=== PATIENT | male | born 1965 | race Caucasian/White ===

== ENCOUNTER 2017-07-15 05:52 | Day surgery (SDC) | payer MEDICARE ==
[~2017-07-15 05:52] MED LIST: Dextrose 5%-0.45% NaCl 1,000 ML IV SCH; Midazolam 1 MG/ML 2 ML SDV ONE; Sodium Chloride 0.9% 10 ML Syringe FLUSH PRN; fentaNYL 100 MCG/2 ML SDV ONE
[2017-07-15] MEDS ORDERED: Midazolam 1 MG/ML 2 ML SDV IV ONE ×7 (05:53→07:08)
[2017-07-15] MEDS ORDERED: fentaNYL 100 MCG/2 ML SDV IV ONE ×4 (05:53→07:09)
--- NOTE | 2017-07-15 08:06 | OR ---
DATE: 07/15/2017 PROCEDURE: Total colonoscopy. INSTRUMENT USED: CF-H180AL Olympus video colonoscope. Olympus disposable distal attachment. PREMEDICATIONS: Fentanyl 125 mcg intravenous, Versed 4 mg intravenous. Nasal 2 L O2 cannula. The procedure was done under pulse oximetry, BP recording, and desk monitor. INDICATION: Screening colonoscopic examination is done for detection of any polypoid lesions and removal, endoscopic hemostasis therapy if needed. DESCRIPTION OF PROCEDURE: Initial rectal exam was unremarkable. Rigid anoscopy was normal. The colonoscope was passed with ease up to the ileocecal area. Photographs were taken of the normal-appearing cecum. Identified by double- bulged ileocecal folds. No bleeding was noted from any of the visualized areas at the commencement of the examination. No stricture. No vascular ectasia. No large isolated ulcerations seen. No evidence of diffuse inflammatory bowel disease in the form of friability, contact bleeding, or ulcerations. No polyp or tumor mass identified. Probing the proximal sides of folds and flexures, using adequate distention and clearing of the stool material, withdrawal of scope was made, cecum to rectum time over 6 minutes. No bleeding was noted from any of the visualized areas at the completion of the examination. IMPRESSION: Normal study. The patient tolerated the procedure well. [facility] /[id number]
== END 2017-07-15 10:20 | disposition home or self-care (01) ==
LOC: DL.ENDO 05:52
PROVIDERS: ATTEND Internal Medicine Gastroenterology
DX: Z12.11 Encounter for screening for malignant neoplasm of colon (principal); Z86.718 Personal history of other venous thrombosis and embolism
CPT/HCPCS: G0121; J2250; J3010; J7042

== ENCOUNTER 2019-10-13 06:52 | Day surgery (SDC) | payer MEDICARE, OTHER ==
[~2019-10-13 06:52] MED LIST changes: -Dextrose 5%-0.45% NaCl 1,000 ML IV SCH; +Lactated Ringers 1,000 ML IV SCH; -Midazolam 1 MG/ML 2 ML SDV ONE; -fentaNYL 100 MCG/2 ML SDV ONE
[2019-10-13] MEDS ORDERED: fentaNYL 100 MCG/2 ML SDV IV ONE (06:53)
[2019-10-13] MEDS ORDERED: Ketorolac 30 MG/ML SDV IVPUSH ONE (06:53)
[2019-10-13] MEDS ORDERED: Propofol 200 MG/20 ML SDV IV ONE (06:53)
[2019-10-13] MEDS ORDERED: Lidocaine 1% 30 ML SDV ONE ×2 (06:53→09:16)
[2019-10-13] MEDS ORDERED: Bupivacaine 0.5% 30 ML SDV ONE ×2 (06:53→09:16)
[2019-10-13] MEDS ORDERED: Midazolam 1 MG/ML 2 ML SDV IV ONE (06:53)
[2019-10-13] MEDS ORDERED: Dexamethasone 4 MG/ML SDV IV ONE (06:53)
[2019-10-13] MEDS: Clindamycin Phosphate 600 MG in Sodium Chloride 0.9% 100 ML IV ONE ×2 (09:06→13:45)
[2019-10-13] MEDS ORDERED: Bupivacaine 0.5% 30 ML SDV INJECT ONE ×3 (09:28→10:02)
[2019-10-13] MEDS ORDERED: Lidocaine 1% 30 ML SDV INJECT ONE ×3 (09:28→10:02)
[2019-10-13] MEDS ORDERED: Acetaminophen/oxyCODONE 325-5 MG Tab PO PRN (10:13)
--- NOTE | 2019-10-13 10:17 | PCM.OPNOTE ---
- General Post-Op/Procedure Note Date of Surgery/Procedure: 10/13/19 Operative Procedure(s): right foot talar exostectomy Pre Op Diagnosis: right foot painful bone spur dorsal talus Post-Op Diagnosis: tram Anesthesia Technique: Local, MAC Primary Surgeon: Felecia Prescott Anesthesia Provider: Julio Ríos EBL in mLs: 5 Complications: none Condition: Good Free Text/Narrative:: Pt tolerated procedure well and was transported to recovery with vascular status intact to right foot. Well padded compression dressing applied.
--- NOTE | 2019-10-14 02:28 | OR ---
DATE: 10/13/2019 PREOPERATIVE DIAGNOSIS: Right foot talonavicular joint exostosis. POSTOPERATIVE DIAGNOSIS: Right foot talonavicular joint exostosis. PROCEDURE PERFORMED: Right foot talonavicular joint exostectomy. ANESTHESIA: Local MAC with preoperative local block of 10 mL 1:1 mixture of 1% lidocaine plain and 0.5% Marcaine plain. TOURNIQUET TIME: 26 minutes, pneumatic ankle tourniquet. ESTIMATED BLOOD LOSS: Minimal. SPECIMEN: None. COMPLICATIONS: None. INDICATIONS: Dimitrios is a 54-year-old male who presents for right foot pain. This has been bothering him for a few years now and gradually worsening. He states that several years ago, he injured that foot and feels like it has been twisted ever since then. Most of his pain is now localized to the top of the foot near the ankle where he does have pain when he is walking or standing, also now it is starting to bother him at night and feels like there are needles and shooting pain coming from that area. We have tried wider shoes and inserts with no relief. X-rays of the right foot reveal large dorsal spurring at the talonavicular joint area. No signs of fracture. The patient voiced good understanding of proposed procedure and possible complications, elects to have surgery at this time. DESCRIPTION OF THE PROCEDURE: The patient was taken to the operating room lying in the supine position. After adequate anesthesia induction as described above, the right foot was prepped and draped in the usual sterile fashion. A pneumatic ankle tourniquet was inflated to 225 mmHg. Attention was directed to the right dorsal medial foot just medial to the anterior tibial tendon course, being careful to avoid the saphenous neurovascular bundle. A 4-cm linear incision was made at this area. Sharp and blunt dissections were performed down to the level of the dorsal talus navicular joint, being careful to avoid all neurovascular structures. A capsulotomy was made and the large spur was identified. A rongeur was used to remove the spur and a bone rasp was used to smooth all edges. Fluoroscopy was used to verify adequate resection of the bone spur and I was also able to visually and palpate the area to ensure all spur was removed. Bone wax was placed at the area of the spur removal. The area was first irrigated with copious amounts of sterile saline and then the bone wax was applied. The deep closure was completed with 3-0 Vicryl and skin closure was completed with 4-0 nylon. The area was then dressed with Xeroform to the incision site, fluffs, Webril, and an Jeronimo wrap. The patient tolerated anesthesia and the procedure well and was transferred to the recovery room with vital signs stable, vascular status intact as noted by immediate hyperemia to all digits upon deflation of the ankle tourniquet. The patient was then discharged home when he met hospital discharge requirements. [facility] /[id number]
== END 2019-10-13 12:09 | disposition home or self-care (01) ==
LOC: DL.SDS 06:52
PROVIDERS: ATTEND Podiatrist
DX: M77.51 Other enthesopathy of right foot and ankle (principal); D45 Polycythemia vera; I82.501 Chronic embolism and thrombosis of unspecified deep veins of right lower extremity; Z79.01 Long term (current) use of anticoagulants
CPT/HCPCS: 01480; 27635; J1100; J1885; J2001; J2250; J2704; J3010; J3490; J7050; J7120

== ENCOUNTER 2019-11-02 10:00 | Emergency (ER) | payer MEDICARE, OTHER ==
--- NOTE | 2019-11-02 10:33 | EDM.PDOC ---
<Chicho Dial - Last Filed: 11/02/19 10:28> ED HPI GENERAL MEDICAL PROBLEM - General Chief Complaint: Lower Extremity Injury/Pain Stated Complaint: SENT BY DR LEGGETT, SWOLLEN FOOT Time Seen by Provider: 11/02/19 10:28 Source of Information: Reports: Patient, RN, RN Notes Reviewed History Limitations: Reports: No Limitations - History of Present Illness INITIAL COMMENTS - FREE TEXT/NARRATIVE: had foot surgury on October 13 (bone spur), foot is still swollen and hurting , rates the pain 06/23, took 200 mg Ibuprofen at 0200, called Dr Leggett, and sent to the ER, foot is swollen and red, has dry flakey skin, incision is healed and has no drainage. Patient noticed redness slowly progressing up his leg from his foot in the last few days and the pain has gotten worse. Denies fever/chills or any other symptoms at this time. Onset: Gradual (swelling, pain and erythema has slowly progressed since surgery on Oct 14.) Duration: Constant Location: Reports: Lower Extremity, Right Quality: Reports: Ache Severity: Moderate Improves with: Reports: None Worsens with: Reports: None Associated Symptoms: Reports: No Other Symptoms Right Foot Pain Score (Numeric/FACES): 10 - Related Data Allergies Allergy/AdvReac Type Severity Reaction Status Date / Time No Known Allergies Allergy Verified 11/02/19 10:12 Home Meds: Home Meds Warfarin [Coumadin] 1 mg PO ASDIRECTED 07/14/17 [History] Past Medical History HEENT History: Reports: Other (See Below) Other HEENT History: LEGALLY BLIND (RETINITIS PIGMENTOSA) Cardiovascular History: Reports: Blood Clots/VTE/DVT Other Cardiovascular History: RIGHT LEG DVT Respiratory History: Reports: None Gastrointestinal History: Reports: None Genitourinary History: Reports: None Musculoskeletal History: Reports: Other (See Below) Other Musculoskeletal History: RIGHT FOOT BONE SPUR Neurological History: Reports: None Psychiatric History: Reports: None Endocrine/Metabolic History: Reports: None Hematologic History: Reports: Polycythemia, Other (See Below) Other Hematologic History: LONGTERM CURRENT USE OF ANTICOAGULANTS Immunologic History: Reports: None Oncologic (Cancer) History: Reports: None Dermatologic History: Reports: Psoriasis - Infectious Disease History Infectious Disease History: Reports: Chicken Pox - Past Surgical History Head Surgeries/Procedures: Reports: None HEENT Surgical History: Reports: Cataract Surgery Cardiovascular Surgical History: Reports: None Respiratory Surgical History: Reports: None GI Surgical History: Reports: Colonoscopy Male Surgical History: Reports: None Endocrine Surgical History: Reports: None Neurological Surgical History: Reports: None Musculoskeletal Surgical History: Reports: None Oncologic Surgical History: Reports: None Social & Family History - Family History Family Medical History: Noncontributory - Tobacco Use Smoking Status *Q: Never Smoker Second Hand Smoke Exposure: No - Caffeine Use Caffeine Use: Reports: Coffee, Soda - Recreational Drug Use Recreational Drug Use: No Review of Systems - Review of Systems Review Of Systems: Comprehensive ROS is negative, except as noted in HPI. ED EXAM, GENERAL - Physical Exam Exam: See Below Exam Limited By: No Limitations General Appearance: Alert, WD/WN, No Apparent Distress Respiratory/Chest: No Respiratory Distress, Lungs Clear, Normal Breath Sounds, No Accessory Muscle Use, Chest Non-Tender Cardiovascular: Normal Peripheral Pulses, Regular Rate, Rhythm, No Edema, No Gallop, No JVD, No Murmur, No Rub Extremities: Leg Pain, Increased Warmth, Redness (right foot, ankle, lower leg) Skin Exam: Warm, Dry, Intact, Erythema, Increased Warmth (right lower leg, ankle , foot) Course - Vital Signs Last Recorded V/S: Last Vital Signs Temp 36.3 C 11/02/19 10:07 Pulse 73 11/02/19 10:07 Resp 16 11/02/19 10:07 BP 112/83 11/02/19 10:07 Pulse Ox 99 11/02/19 10:07 - Orders/Labs/Meds Orders: Active Orders 24 hr Category Date Time Status Foot Comp Min 3V Rt [CR] Urgent Exams 11/02/19 10:26 Taken CULTURE BLOOD [BC] Stat Lab 11/02/19 10:35 Received Labs: Laboratory Tests 11/02/19 11/02/19 11/02/19 Range/Units 10:35 10:35 10:35 WBC 6.8 (5.0-10.0) 10^3/uL RBC 4.48 L (4.6-6.2) 10^6/uL Hgb 15.1 (14.0-18.0) g/dL Hct 44.2 (40.0-54.0) % MCV 98.7 (80-100) fL MCH 33.7 (27.0-34.0) pg MCHC 34.2 (33.0-35.0) g/dL Plt Count 165 (150-450) 10^3/uL Neut % (Auto) 62.2 (42.2-75.2) % Lymph % (Auto) 17.7 L (20.5-50.1) % [place] % (Auto) 10.8 H (2-8) % Eos % (Auto) 8.3 H (1.0-3.0) % Baso % (Auto) 1.0 (0.0-1.0) % PT (9.0-12.0) SEC INR (0.9-1.2) Sodium 137 (135-145) mmol/L Potassium 3.7 (3.6-5.0) mmol/L Chloride 103 (101-111) mmol/L Carbon Dioxide 26.0 (21.0-31.0) mmol/L Anion Gap 11.7 BUN 10 (7-18) mg/dL Creatinine 0.8 (0.6-1.3) mg/dL Est Cr Clr Drug Dosing 106.79 mL/min Estimated GFR (MDRD) > 60 BUN/Creatinine Ratio 12.50 Glucose 59 L (74-105) mg/dL Lactic Acid 1.5 (0.5-2.0) mmol/L Calcium 8.8 (8.4-10.2) mg/dl Total Bilirubin 1.2 H (0.2-1.0) mg/dL AST 26 (10-42) IU/L ALT 18 (10-60) IU/L Alkaline Phosphatase 44 (42-121) IU/L Total Protein 7.2 (6.7-8.2) g/dl Albumin 4.0 (3.2-5.5) g/dl Globulin 3.2 Albumin/Globulin Ratio 1.25 02/19/20 Range/Units 10:35 WBC (5.0-10.0) 10^3/uL RBC (4.6-6.2) 10^6/uL Hgb (14.0-18.0) g/dL Hct (40.0-54.0) % MCV (80-100) fL MCH (27.0-34.0) pg MCHC (33.0-35.0) g/dL Plt Count (150-450) 10^3/uL Neut % (Auto) (42.2-75.2) % Lymph % (Auto) (20.5-50.1) % [place] % (Auto) (2-8) % Eos % (Auto) (1.0-3.0) % Baso % (Auto) (0.0-1.0) % PT 46.5 H (9.0-12.0) SEC INR 4.9 H (0.9-1.2) Sodium (135-145) mmol/L Potassium (3.6-5.0) mmol/L Chloride (101-111) mmol/L Carbon Dioxide (21.0-31.0) mmol/L Anion Gap BUN (7-18) mg/dL Creatinine (0.6-1.3) mg/dL Est Cr Clr Drug Dosing mL/min Estimated GFR (MDRD) BUN/Creatinine Ratio Glucose (74-105) mg/dL Lactic Acid (0.5-2.0) mmol/L Calcium (8.4-10.2) mg/dl Total Bilirubin (0.2-1.0) mg/dL AST (10-42) IU/L ALT (10-60) IU/L Alkaline Phosphatase (42-121) IU/L Total Protein (6.7-8.2) g/dl Albumin (3.2-5.5) g/dl Globulin Albumin/Globulin Ratio Meds: Medications Discontinued Medications Generic Name Dose Route Start Last Admin Trade Name Freq PRN Reason Stop Dose Admin Acetaminophen 650 mg 11/02/19 11:21 11/02/19 11:24 Tylenol PO 11/02/19 11:22 650 mg NOW ONE Administration Departure - Departure Disposition: Home, Self-Care 01 Clinical Impression: Cellulitis of right foot - Discharge Information Instructions: Cellulitis, Adult, [id number] Forms: ED Department Discharge Care Plan Goals: The patient was advised of the examination, lab, x-ray and ultrasound results during the visit. The patient was given a dose of Tylenol while in the ED. Dr. Prescott was consulted during the visit and advised of the results. Dr. Prescott recommended the patient wear his boot and follow-up with her on Thursday (11/04/19) at 10:00. The patient was discharged with scripts for 1) Keflex (500 mg) #40 to take 1 by mouth 4 times per day for 10 days and 2) Oxycodone (5 mg) # 10 to take 1 by mouth every 8 hours as needed for pain. If the patient has any additional symptoms or concerns, the patient should either return to the emergency department or visit his primary care facility. Sepsis Event Note - Evaluation Sepsis Screening Result: No Definite Risk - Focused Exam Vital Signs: Vital Signs Temp Pulse Resp BP Pulse Ox 11/02/19 10:07 36.3 C 73 16 112/83 99 Date Exam was Performed: 11/02/19 Time Exam was Performed: 10:28 - My Orders Last 24 Hours: My Active Orders 11/02/19 10:26 Foot Comp Min 3V Rt [CR] Urgent 11/02/19 10:35 CULTURE BLOOD [BC] Stat - Assessment/Plan Last 24 Hours: My Active Orders 11/02/19 10:26 Foot Comp Min 3V Rt [CR] Urgent 11/02/19 10:35 CULTURE BLOOD [BC] Stat <Dimitrios Poon M - Last Filed: 11/02/19 13:07> Departure - Departure Time of Disposition: 13:04 Condition: Fair - Discharge Information *PRESCRIPTION DRUG MONITORING PROGRAM REVIEWED*: Not Applicable *COPY OF PRESCRIPTION DRUG MONITORING REPORT IN PATIENT LUIS ARMANDO: Not Applicable Sepsis Event Note - Focused Exam Date Exam was Performed: 11/02/19 Time Exam was Performed: 13:03
[2019-11-02 11:07] LABS: ANION GAP 11.7; CHLORIDE,CL 103 mmol/L (101-111); SODIUM,NA 137 mmol/L (135-145)
[2019-11-02] MEDS ORDERED: Acetaminophen 325 MG Tab PO ONE (11:21)
--- NOTE | 2019-11-02 12:40 | US ---
EXAMINATION: Venous Doppler Lwr Ext Rt SEX: Male AGE: 54 years CLINICAL HISTORY: 54-year-old male pain and swelling right leg (significantly, right foot surgery 13 October 2019 and this patient with a history of "DVT right leg", 20 years ago). Patient on Coumadin anticoagulant therapy. Interpretation: Negative exam. No sign of intraluminal echogenic thrombus and normal compressibility deep veins of the right groin, thigh, knee and calf. Satisfactory augmentation and venous waveforms demonstrated respectively in the peroneal/posterior tibial veins of the right calf, popliteal vein behind the right knee, and possibly in the femoral veins of the right lower extremity. No sign of Encinas's cyst or popliteal artery aneurysm. Note: Multiple large lymph nodes identified in the right groin. CONCLUSION: No current sonographic evidence deep vein thrombosis right lower extremity. Lymphadenopathy right groin.
== END 2019-11-02 13:15 | disposition home or self-care (01) ==
LOC: DL.ED 10:00
DX: L03.115 Cellulitis of right lower limb (principal)
CPT/HCPCS: 36415; 73630; 80053; 83605; 85025; 85610; 87040; 93971; 99284; A9270

== ENCOUNTER 2022-01-07 08:56 | Emergency (ER) | payer MEDICARE ==
[2022-01-07] MEDS ORDERED: Morphine 2 MG/ML SYRINGE IVPUSH ONE (09:36)
[2022-01-07] MEDS ORDERED: Sodium Chloride 0.9% 10 ML Syringe FLUSH PRN (09:36)
== END 2022-01-07 11:11 | disposition home or self-care (01) ==
LOC: DL.ED 08:56
DX: M54.50 Low back pain, unspecified (principal); K82.9 Disease of gallbladder, unspecified; R31.9 Hematuria, unspecified; Z79.01 Long term (current) use of anticoagulants
CPT/HCPCS: 74176; 81001; 96374; 99283; 99284-25; J2270; J3490